=== PATIENT | male | born 1990 | race Caucasian/White ===

== ENCOUNTER 2019-05-07 21:12 | Emergency (ER) | payer MEDICAID ==
[2019-05-07 21:52] LABS: ADD MAN DIFF? NO
[2019-05-07 21:54] LABS: WHITE BLOOD COUNT 13.5 10^3/ul (4.8-10.8)
[2019-05-07 21:54] LABS: BASOPHILS % 0.2 % (0.0-2.0); HEMATOCRIT 41.5 % (42.0-52.0); HEMOGLOBIN 13.1 g/dl (14.0-18.0); LYMPHOCYTES # 1.1 10^3/ul (0.8-2.9); LYMPHOCYTES % 8.1 % (15.0-51.0); MEAN CORPUSCULAR HEMOGLOBIN 26.5 pg (29.0-33.0); MEAN CORPUSCULAR HGB CONC 31.6 g/dl (32.0-37.0); MEAN PLATELET VOLUME 10.9 fl (7.4-10.4); MONOCYTE # 0.9 10^3/ul (0.3-0.9); NEUTROPHIL # 11.4 10^3/ul (1.6-7.5); NEUTROPHILS % 84.4 % (39.0-77.0); PLATELET COUNT 224 10^3/UL (140-415); RED BLOOD COUNT 4.94 10^6/ul (4.70-6.10); RED CELL DISTRIBUTION WIDTH 14.6 % (11.5-14.5)
[2019-05-07] MEDS: SOD CHLORIDE 0.9% 1,000 ML IV (21:59)
[2019-05-07] MEDS: ACETAMINOPHEN 500 MG TAB PO (22:00)
[2019-05-07] MEDS: SODIUM CHLORIDE 0.9% 1L BAG IV* (22:00)
[2019-05-07] MEDS: morphine 4 MG/ML VIAL IV (22:01)
[2019-05-07] MEDS: ONDANSETRON 4 MG INJ IV (22:01)
[2019-05-07] MEDS: IBUPROFEN 800 MG TAB PO (22:01)
[2019-05-07 22:14] LABS: PROTIME 14.3 Sec (11.9-14.9); PT RATIO 1.1
[2019-05-07 22:15] LABS: PARTIAL THROMBOPLASTIN TIME 31.7 Sec (23.0-35.0)
[2019-05-07 22:28] LABS: ALANINE AMINOTRANSFERASE 116 IU/L (13-69); ALBUMIN 4.7 g/dl (3.3-4.9); ALBUMIN/GLOBULIN RATIO 1.11; ALKALINE PHOSPHATASE 162 IU/L (42-121); AMYLASE 71 U/L (11-123); ANION GAP 11 (5-13); ASPARTATE AMINO TRANSFERASE 61 IU/L (15-46); BILIRUBIN,INDIRECT 0.9 mg/dl (0-1.1); BILIRUBIN,TOTAL 0.9 mg/dl (0.2-1.3); BLOOD UREA NITROGEN 13 mg/dl (7-20); CARBON DIOXIDE 28 mmol/L (21-31); CHLORIDE 101 mmol/L (97-110); CREATININE 0.87 mg/dl (0.61-1.24); Estimated GFR > 60 mL/min (>60); GLUCOSE 107 mg/dl (70-220); LIPASE 87 U/L (23-300); POTASSIUM 3.4 mmol/L (3.5-5.1); SODIUM 140 mmol/L (135-144); TOTAL PROTEIN 8.9 g/dl (6.1-8.1)
[2019-05-07 22:30] LABS: ETHANOL < 10.0 mg/dl (0-0)
[2019-05-07 22:33] LABS: ADD UMIC YES; UR AMORPHOUS CRYSTAL FEW /HPF (NONE SEEN); UR ASCORBIC ACID 40 mg/dL (NEGATIVE); UR BACTERIA FEW /HPF (NONE SEEN); UR BILIRUBIN (Dip) NEGATIVE (NEGATIVE); UR BLOOD (Dip) NEGATIVE (NEGATIVE); UR CLARITY SLIGHTLY CLOUDY (CLEAR); UR COLOR AMBER (YELLOW); UR GLUCOSE (Dip) NEGATIVE (NEGATIVE); UR KETONES (Dip) NEGATIVE (NEGATIVE); UR LEUKOCYTE ESTERASE (Dip) 3+ Leu/ul (NEGATIVE); UR MUCUS FEW /HPF (NONE SEEN); UR NITRITE (Dip) NEGATIVE (NEGATIVE); UR RBC 11 /HPF (0-5); UR SQUAMOUS EPITHELIAL CELL FEW /HPF (FEW); UR TOTAL PROTEIN (Dip) 1+ mg/dl (NEGATIVE); UR UROBILINOGEN (Dip) 2+ mg/dL (NEGATIVE); UR WBC 115 /HPF (0-5)
[2019-05-07 22:40] LABS: TROPONIN-I 0.027 ng/ml (0.000-0.120)
[2019-05-07] MEDS: CEFTRIAXONE 1 GM/50 ML (PMX) 50 ML IVPB (23:22)
[2019-05-08] MEDS: KETOROLAC 30 MG INJ IV (00:10)
== END 2019-05-08 00:17 | disposition home or self-care (01) ==
LOC: E/R 05-08 00:17
DX: N12 Tubulo-interstitial nephritis, not specified as acute or chronic (principal); J02.9 Acute pharyngitis, unspecified; R07.9 Chest pain, unspecified; Z87.891 Personal history of nicotine dependence
CPT/HCPCS: 71045; 76775; 80053; 80307; 81001; 82150; 83605; 83690; 84484; 85025; 85610; 85730; 87040-91; 87086; 87880; 93005; 96361; 96374; 96375; 99285-25

== ENCOUNTER 2019-05-10 06:29 | Inpatient (IN) | payer MEDICAID ==
[2019-05-10] MEDS: CIPROFLOXACIN 400MG/D5W 200 ML IVPB (07:13)
[2019-05-10] MEDS: ACETAMINOPHEN 325 MG TAB PO ×2 (07:13→21:58)
[2019-05-10] MEDS: SODIUM CHLORIDE 0.9% 1L BAG IV* (07:13)
[2019-05-10 07:26] LABS: ADD MAN DIFF? NO
[2019-05-10 07:33] LABS: WHITE BLOOD COUNT 10.2 10^3/ul (4.8-10.8)
[2019-05-10 07:33] LABS: BASOPHILS % 0.3 % (0.0-2.0); HEMATOCRIT 35.8 % (42.0-52.0); HEMOGLOBIN 11.5 g/dl (14.0-18.0); LYMPHOCYTES # 1.4 10^3/ul (0.8-2.9); LYMPHOCYTES % 13.2 % (15.0-51.0); MEAN CORPUSCULAR HEMOGLOBIN 26.9 pg (29.0-33.0); MEAN CORPUSCULAR HGB CONC 32.1 g/dl (32.0-37.0); MEAN CORPUSCULAR VOLUME 83.6 fl (82.0-101.0); MEAN PLATELET VOLUME 11.3 fl (7.4-10.4); MONOCYTE # 0.9 10^3/ul (0.3-0.9); MONOCYTES % 8.4 % (0.0-11.0); NEUTROPHIL # 7.9 10^3/ul (1.6-7.5); NEUTROPHILS % 77.4 % (39.0-77.0); PLATELET COUNT 226 10^3/UL (140-415); RED BLOOD COUNT 4.28 10^6/ul (4.70-6.10); RED CELL DISTRIBUTION WIDTH 14.7 % (11.5-14.5)
[2019-05-10 07:52] LABS: INR 1.16; PROTIME 14.9 Sec (11.9-14.9); PT RATIO 1.2
[2019-05-10 07:53] LABS: PARTIAL THROMBOPLASTIN TIME 37.4 Sec (23.0-35.0)
[2019-05-10 07:54] LABS: ALANINE AMINOTRANSFERASE 117 IU/L (13-69); ALBUMIN 4.1 g/dl (3.3-4.9); ALBUMIN/GLOBULIN RATIO 1.02; ALKALINE PHOSPHATASE 165 IU/L (42-121); ANION GAP 8 (5-13); ASPARTATE AMINO TRANSFERASE 58 IU/L (15-46); BILIRUBIN,INDIRECT 1.2 mg/dl (0-1.1); BILIRUBIN,TOTAL 1.2 mg/dl (0.2-1.3); BLOOD UREA NITROGEN 10 mg/dl (7-20); CALCIUM 8.7 mg/dl (8.4-10.2); CARBON DIOXIDE 31 mmol/L (21-31); CHLORIDE 99 mmol/L (97-110); CREATININE 0.82 mg/dl (0.61-1.24); Estimated GFR > 60 mL/min (>60); GLUCOSE 142 mg/dl (70-220); POTASSIUM 3.1 mmol/L (3.5-5.1); SODIUM 138 mmol/L (135-144); TOTAL PROTEIN 8.1 g/dl (6.1-8.1)
[2019-05-10] MEDS: FUROSEMIDE 20 MG INJ IV ×2 (07:55→14:20)
[2019-05-10] MEDS: MEROPENEM 1 GM/50ML(PMX) 50 ML IVPB (07:56)
[2019-05-10 08:04] LABS: TROPONIN-I 0.049 ng/ml (0.000-0.120)
[2019-05-10] MEDS: VANCOMYCIN 1 GM (PMX) 250 ML IVPB (08:08)
[2019-05-10] MEDS: POTASSIUM CHLORIDE 20 MEQ POWDER FOR ORAL SOLN PO (08:10)
[2019-05-10 08:12] LABS: D-DIMER 799.23 ng/ml (<460)
[2019-05-10 08:18] LABS: B-TYPE NATRIURETIC PEPTIDE 937 PG/ML (0-125)
[2019-05-10 08:29] LABS: ADD UMIC NO; UR ASCORBIC ACID NEGATIVE (NEGATIVE); UR BILIRUBIN (Dip) NEGATIVE (NEGATIVE); UR BLOOD (Dip) NEGATIVE (NEGATIVE); UR CLARITY CLEAR (CLEAR); UR COLOR YELLOW (YELLOW); UR GLUCOSE (Dip) NEGATIVE (NEGATIVE); UR KETONES (Dip) NEGATIVE (NEGATIVE); UR LEUKOCYTE ESTERASE (Dip) NEGATIVE Leu/ul (NEGATIVE); UR NITRITE (Dip) NEGATIVE (NEGATIVE); UR SPECIFIC GRAVITY (Dip) 1.003 (1.003-1.030); UR TOTAL PROTEIN (Dip) NEGATIVE (NEGATIVE); UR UROBILINOGEN (Dip) 2+ mg/dL (NEGATIVE)
[2019-05-10 08:42] LABS: C-REACTIVE PROTEIN 22.4 mg/dl (0.0-0.9)
[2019-05-10] MEDS: SOD CHLORIDE 0.9% 100 ML (08:51)
[2019-05-10] MEDS: IOHEXOL 100 ML (08:52)
[2019-05-10 09:26] LABS: LACTIC ACID 1.1 mmol/L (0.5-2.0)
[2019-05-10] MEDS ORDERED: ONDANSETRON 4 MG INJ IV (09:30)
[2019-05-10] MEDS ORDERED: ACETAMINOPHEN 325 MG TAB PO (09:30)
[2019-05-10 12:27] LABS: LACTIC ACID 0.9 mmol/L (0.5-2.0)
[2019-05-10] MEDS ORDERED: VANCOMYCIN IV PER PHARMACY XX (13:30)
[2019-05-10] MEDS: LEVOFLOXACIN 500MG/D5W (PMX) 100 ML IVPB (14:21)
[2019-05-10] MEDS: VANCOMYCIN HCL 2 GM in SOD CHLORIDE 0.9% 500 ML IVPB (15:18)
[2019-05-10] MEDS: LISINOPRIL 20 MG TAB PO (16:32)
[2019-05-10] MEDS: HYDROCHLOROTHIAZIDE 25 MG TAB PO (16:32)
[2019-05-10] MEDS: hydrALAzine 20 MG INJ IV (21:12)
[2019-05-10] MEDS: DOCUSATE SODIUM 100 MG CAP PO (21:57)
[2019-05-10] MEDS: LACTOBACILLUS RHAMNOSUS CAP PO (21:57)
[2019-05-11] MEDS: hydrALAzine 20 MG INJ IV (00:28)
[2019-05-11] MEDS: VANCOMYCIN 1.5 GM/NS 250 ML 250 ML IVPB ×4 (00:37→22:14)
[2019-05-11] MEDS: HYDROCHLOROTHIAZIDE 25 MG TAB PO (06:16)
[2019-05-11 06:21] LABS: ADD MAN DIFF? NO
[2019-05-11 06:31] LABS: WHITE BLOOD COUNT 8.3 10^3/ul (4.8-10.8)
[2019-05-11 06:31] LABS: BASOPHILS % 0.4 % (0.0-2.0); EOSINOPHILS % 0.4 % (0.0-7.0); HEMATOCRIT 37.9 % (42.0-52.0); HEMOGLOBIN 11.9 g/dl (14.0-18.0); LYMPHOCYTES # 1.6 10^3/ul (0.8-2.9); LYMPHOCYTES % 19.2 % (15.0-51.0); MEAN CORPUSCULAR HEMOGLOBIN 26.7 pg (29.0-33.0); MEAN CORPUSCULAR HGB CONC 31.4 g/dl (32.0-37.0); MEAN PLATELET VOLUME 11.1 fl (7.4-10.4); MONOCYTE # 0.8 10^3/ul (0.3-0.9); MONOCYTES % 10.1 % (0.0-11.0); NEUTROPHIL # 5.8 10^3/ul (1.6-7.5); NEUTROPHILS % 69.2 % (39.0-77.0); PLATELET COUNT 249 10^3/UL (140-415); RED BLOOD COUNT 4.46 10^6/ul (4.70-6.10); RED CELL DISTRIBUTION WIDTH 15.2 % (11.5-14.5)
[2019-05-11 06:54] LABS: CHOLESTEROL 160 mg/dl (100-200)
[2019-05-11 06:54] LABS: CHOL/HDL RATIO 5.7 RATIO; HDL CHOLESTEROL 28 mg/dl (28-63); LDL CHOLESTEROL,CALCULATED 111 mg/dl; TRIGLYCERIDES 105 mg/dl (0-149)
[2019-05-11 06:57] LABS: ALANINE AMINOTRANSFERASE 121 IU/L (13-69); ALBUMIN 3.8 g/dl (3.3-4.9); ALBUMIN/GLOBULIN RATIO 0.95; ALKALINE PHOSPHATASE 165 IU/L (42-121); ANION GAP 5 (5-13); ASPARTATE AMINO TRANSFERASE 69 IU/L (15-46); BILIRUBIN,INDIRECT 0.9 mg/dl (0-1.1); BILIRUBIN,TOTAL 0.9 mg/dl (0.2-1.3); BLOOD UREA NITROGEN 13 mg/dl (7-20); CALCIUM 8.5 mg/dl (8.4-10.2); CARBON DIOXIDE 34 mmol/L (21-31); CHLORIDE 100 mmol/L (97-110); CREATININE 0.71 mg/dl (0.61-1.24); Estimated GFR > 60 mL/min (>60); GLUCOSE 125 mg/dl (70-220); MAGNESIUM 2.3 mg/dl (1.7-2.5); PHOSPHORUS 4.3 mg/dl (2.5-4.9); POTASSIUM 3.1 mmol/L (3.5-5.1); SODIUM 139 mmol/L (135-144); TOTAL PROTEIN 7.8 g/dl (6.1-8.1)
[2019-05-11 06:58] LABS: HEMOGLOBIN A1C 5.7 % (0-5.9)
[2019-05-11] MEDS: FUROSEMIDE 40 MG INJ IV (08:21)
[2019-05-11] MEDS: FAMOTIDINE 20 MG TAB PO (08:22)
[2019-05-11] MEDS: LISINOPRIL 20 MG TAB PO ×2 (08:22→10:14)
[2019-05-11] MEDS: DOCUSATE SODIUM 100 MG CAP PO ×2 (08:22→22:14)
[2019-05-11] MEDS: LACTOBACILLUS RHAMNOSUS CAP PO ×2 (08:22→22:14)
[2019-05-11] MEDS: ENOXAPARIN 40 MG/0.4 ML SYG SC (08:22)
[2019-05-11] MEDS: POTASSIUM CHLORIDE 100 ML IVPB ×2 (10:09→12:50)
[2019-05-11] MEDS: POTASSIUM CHLORIDE (SR) 20 MEQ TAB PO (10:14)
[2019-05-11] MEDS: THIAMINE 200 MG INJ IM (11:54)
[2019-05-11 15:16] LABS: VANCOMYCIN,TROUGH 9.2 ug/ml (10.0-20.0)
[2019-05-11] MEDS: LEVOFLOXACIN 500MG/D5W (PMX) 100 ML IVPB (15:31)
[2019-05-11 23:07] LABS: AMPHETAMINE/METHAMPHETAMINE Negative (NEGATIVE); BARBITURATES Negative (NEGATIVE); BENZODIAZEPINES Negative (NEGATIVE); CANNABINOIDS Positive (NEGATIVE); COCAINE Negative (NEGATIVE); OPIATES Negative (NEGATIVE)
[2019-05-12] MEDS: HYDROCHLOROTHIAZIDE 25 MG TAB PO (05:57)
[2019-05-12 06:15] LABS: ADD MAN DIFF? NO
[2019-05-12] MEDS: VANCOMYCIN 1.5 GM/NS 250 ML 250 ML IVPB ×2 (06:19→15:12)
[2019-05-12 06:24] LABS: BASOPHIL # 0.1 10^3/ul (0.0-0.1); BASOPHILS % 0.5 % (0.0-2.0); EOSINOPHILS # 0.1 10^3/ul (0.0-0.5); EOSINOPHILS % 0.9 % (0.0-7.0); HEMATOCRIT 39.6 % (42.0-52.0); LYMPHOCYTES # 1.9 10^3/ul (0.8-2.9); LYMPHOCYTES % 17.7 % (15.0-51.0); MEAN CORPUSCULAR HEMOGLOBIN 26.3 pg (29.0-33.0); MEAN CORPUSCULAR HGB CONC 30.3 g/dl (32.0-37.0); MEAN CORPUSCULAR VOLUME 86.7 fl (82.0-101.0); MONOCYTE # 0.8 10^3/ul (0.3-0.9); NEUTROPHIL # 7.6 10^3/ul (1.6-7.5); NEUTROPHILS % 72.2 % (39.0-77.0); PLATELET COUNT 283 10^3/UL (140-415); RED BLOOD COUNT 4.57 10^6/ul (4.70-6.10); RED CELL DISTRIBUTION WIDTH 15.3 % (11.5-14.5)
[2019-05-12 06:24] LABS: WHITE BLOOD COUNT 10.5 10^3/ul (4.8-10.8)
[2019-05-12 07:02] LABS: ALANINE AMINOTRANSFERASE 175 IU/L (13-69); ALBUMIN 3.7 g/dl (3.3-4.9); ALBUMIN/GLOBULIN RATIO 0.92; ALKALINE PHOSPHATASE 154 IU/L (42-121); ANION GAP 3 (5-13); ASPARTATE AMINO TRANSFERASE 112 IU/L (15-46); BILIRUBIN,INDIRECT 0.8 mg/dl (0-1.1); BILIRUBIN,TOTAL 0.8 mg/dl (0.2-1.3); BLOOD UREA NITROGEN 19 mg/dl (7-20); CALCIUM 8.9 mg/dl (8.4-10.2); CARBON DIOXIDE 35 mmol/L (21-31); CHLORIDE 101 mmol/L (97-110); CREATININE 0.85 mg/dl (0.61-1.24); Estimated GFR > 60 mL/min (>60); GLUCOSE 117 mg/dl (70-220); POTASSIUM 3.5 mmol/L (3.5-5.1); SODIUM 139 mmol/L (135-144); TOTAL PROTEIN 7.7 g/dl (6.1-8.1)
[2019-05-12] MEDS: THIAMINE 100 MG TAB PO (09:46)
[2019-05-12] MEDS: DOCUSATE SODIUM 100 MG CAP PO (09:46)
[2019-05-12] MEDS: LACTOBACILLUS RHAMNOSUS CAP PO (09:46)
[2019-05-12] MEDS: FAMOTIDINE 20 MG TAB PO (09:46)
[2019-05-12] MEDS: LISINOPRIL 20 MG TAB PO (09:47)
[2019-05-12] MEDS: ENOXAPARIN 40 MG/0.4 ML SYG SC (09:52)
[2019-05-12] MEDS: LEVOFLOXACIN 500MG/D5W (PMX) 100 ML IVPB (13:15)
[2019-05-12] MEDS: TRIMETHOPRIM/SULFAMETHOX (DS) TAB PO (14:26)
[2019-05-12] MEDS: AZITHROMYCIN 500 MG TAB PO (14:26)
[2019-05-12] MEDS: POTASSIUM CHLORIDE (SR) 20 MEQ TAB PO (14:26)
[2019-05-14 22:28] LABS: ALDOSTERONE 2 ng/dL
[2019-05-15 16:47] LABS: RENIN, PLASMA 0.17 ng/mL/h (0.25-5.82)
== END 2019-05-12 18:35 | disposition home or self-care (01) | DRG 871 ==
LOC: E/R 06:29 → 6WM 09:14
DX: A41.9 Sepsis, unspecified organism (principal); J18.9 Pneumonia, unspecified organism; L03.116 Cellulitis of left lower limb; Z68.42 Body mass index [BMI] 45.0-49.9, adult; E66.2 Morbid (severe) obesity with alveolar hypoventilation; R00.2 Palpitations; F10.10 Alcohol abuse, uncomplicated; Z72.0 Tobacco use; E66.01 Morbid (severe) obesity due to excess calories; K76.0 Fatty (change of) liver, not elsewhere classified; F12.90 Cannabis use, unspecified, uncomplicated; I10 Essential (primary) hypertension; E87.6 Hypokalemia
CPT/HCPCS: 36415; 71045; 71275; 73590; 76705; 80053; 80061; 80202; 80307; 81003; 82088; 83036; 83605; 83735; 83880; 84100; 84244; 84443; 84484; 85025; 85378; 85610; 85730; 86140; 87040-91; 87070; 87086; 93005; 93306; 93971; 94660; 96374; 96375; 99285-25